=== PATIENT | female | born 1960 | race Caucasian/White ===

== ENCOUNTER 2020-07-20 11:54 | Inpatient (IN) | payer MEDICAID ==
[~2020-07-20] VITALS: Ht 160 cm; Wt 52.7 kg
[2020-07-20] MEDS ORDERED: PROBIOTIC (12:04)
[2020-07-20] MEDS ORDERED: LISINOPRIL5 MG PO (12:04)
[2020-07-20 12:39] LABS: HEMOGLOBIN 10.7 g/dL (12-16); MCH 24.8 pg (26.0-34.0); MCHC 33.4 g/dL (31.0-37.0); MCV 74.1 fL (80.0-100.0); MEAN PLATELET VOLUME 10.2 fL (7.4-10.4); PLATELET COUNT 265 10x3/uL (130-400); RBC 4.32 10x6/uL (4.00-5.40); RDW 16.7 % (11.5-14.5); WBC 12.1 10x3/uL (4.8-10.8)
[2020-07-20 12:56] LABS: ALBUMIN 3.2 g/dL (3.4-5.0); ALKALINE PHOSPHATASE 79 U/L (30-120); ALT (SGPT) 42 U/L (10-68); AMYLASE - SERUM 58 U/L (25-115); BILIRUBIN - TOTAL 2.29 mg/dL (0.2-1.3); CALCIUM 8.3 mg/dL (8.5-10.1); CARBON DIOXIDE 21.2 mmol/L (21.0-32.0); CREATININE - SERUM 1.5 mg/dL (0.6-1.3); GLUCOSE 129 mg/dL (74-106); LIPASE 342 U/L (73-393); POTASSIUM - SERUM 3.5 mmol/L (3.5-5.1); PROTEIN - SERUM 7.4 g/dL (6.4-8.2); UREA NITROGEN 12 mg/dL (7-18); eGFR NON AFRICAN AMERICAN 38 mL/min (90-120)
[2020-07-20 13:02] LABS: EOSINOPHILS 1 % (0-7); LYMPHOCYTES 27 % (15-50); MONOCYTES 2 % (2-11); NEUTROPHILS 70 % (40-80); PLATELET ESTIMATE NORMAL
[2020-07-20 13:03] LABS: TEAR DROP CELLS OCC
[2020-07-20 13:07] LABS: CALC OSMOLALITY 232 mosm/kg (275-300); TROPONIN-I < 0.017 ng/mL (0.000-0.060)
[2020-07-20 13:16] LABS: CHLORIDE - SERUM 82 mmol/L (98-107); SODIUM 114 mmol/L (136-145)
--- NOTE | 2020-07-20 14:09 | NUR ---
PT UP TO BATHROOM ATTEMPTING TO GIVE URINE SAMPLE
[2020-07-20 14:30] VITALS: BP 143/82
[2020-07-20 16:03] LABS: BILIRUBIN NEGATIVE (NEGATIVE); KETONE NEGATIVE (NEGATIVE); NITRITE NEGATIVE (NEGATIVE); UROBILINOGEN NORMAL (NORMAL)
[2020-07-20 16:35] VITALS: BP 142/84
[2020-07-20 17:48] VITALS: BP 112/67
--- NOTE | 2020-07-20 19:30 | NUR ---
PT ARRIVED TO FLOOR AOX4, AT BEDSIDE. AMBULATING TO BATHROOM AND BACK WITHOUT DIFFICULTY. ABD VERY DISTENDED, TENDER TO TOUCH. REPORT NO N/V SINCE STOPPING LEVAQUIN AND FLAGYL BUT STILL HAVING DIARRHEA. DR WELLS AT BEDSIDE SPEAKING WITH PT AT THIS TIME. CL IN REACH, WILL CTM
[2020-07-20] MEDS ORDERED: CLARITIN 10 MG10 MG PO (19:31)
[2020-07-20 20:00] VITALS: BP 120/74
--- NOTE | 2020-07-20 20:30 | NUR ---
DR WELLS ORDERED REPEAT CMP AND TO CALL RESULTS TO HER. ORDERS ALSO FOR NEPHROLOGY AND GASTROENTEROLOGY CONSULT. STATES TO CALL NEPHRO IN AM AND IS AWARE GI IS OUT UNTIL 07/24/20
[2020-07-20 20:57] LABS: ALBUMIN 2.7 g/dL (3.4-5.0); ANION GAP 12.9 mmol/L (8-16); BILIRUBIN - TOTAL 1.91 mg/dL (0.2-1.3); CALCIUM 7.5 mg/dL (8.5-10.1); CARBON DIOXIDE 21.3 mmol/L (21.0-32.0); CREATININE - SERUM 1.3 mg/dL (0.6-1.3); POTASSIUM - SERUM 3.2 mmol/L (3.5-5.1); PROTEIN - SERUM 6.5 g/dL (6.4-8.2)
--- NOTE | 2020-07-20 21:20 | NUR ---
CALLED RESULTS OF CMP TO DR WELLS. ORDER RECIEVED FOR NS W/ 20k @ 75. STARTED ORDERED. COLLECTED COVID SWAB. PLACED URINE HAT IN TOILET, INFORMED PT WE NEEDED TO A URINE SAMPLE AND TO CALL WHEN SHE GOES, VERBALIZED UNDERSTANDING BUT STATES SHE JUST WENT AND IT MIGHT BE A WHILE. DENIES OTHER NEEDS AT THIS TIME. CL IN REACH, WILL CTM
[2020-07-20 23:14] VITALS: Ht 160 cm; Wt 52.7 kg
[2020-07-21] VITALS (14 sets, daily range): BP systolic 93–123; BP diastolic 49–70
[2020-07-21 04:51] LABS: BASOPHILS 0.6 % (0-2); EOSINOPHILS 1.2 % (0-7); HEMATOCRIT 28.4 % (36.0-48.0); HEMOGLOBIN 9.5 g/dL (12-16); IMMATURE GRANULOCYTES 0.3 % (0-5); LYMPHOCYTES 19.5 % (15-50); MCH 24.9 pg (26.0-34.0); MCHC 33.5 g/dL (31.0-37.0); MCV 74.3 fL (80.0-100.0); MONOCYTES 20.1 % (2-11); NEUTROPHILS 58.3 % (40-80); PLATELET COUNT 265 10x3/uL (130-400); RBC 3.82 10x6/uL (4.00-5.40); RDW 16.9 % (11.5-14.5); WBC 14.7 10x3/uL (4.8-10.8)
[2020-07-21 05:07] LABS: APTT 44.5 SECONDS (22.8-39.4); INR 1.65 (0.85-1.17); PROTIME 19.3 SECONDS (11.6-15.0)
[2020-07-21 05:40] LABS: ALBUMIN 2.7 g/dL (3.4-5.0); BILIRUBIN - TOTAL 1.85 mg/dL (0.2-1.3); CALCIUM 7.1 mg/dL (8.5-10.1); CARBON DIOXIDE 20.8 mmol/L (21.0-32.0); CREATININE - SERUM 1.5 mg/dL (0.6-1.3); MAGNESIUM - SERUM 1.7 mg/dL (1.8-2.4); POTASSIUM - SERUM 3.3 mmol/L (3.5-5.1); PROTEIN - SERUM 6.5 g/dL (6.4-8.2); THYROID STIMULATING HORMONE 4.7 uIU/mL (0.36-3.74)
[2020-07-21 05:41] LABS: ANION GAP 11.5 mmol/L (8-16)
--- NOTE | 2020-07-21 07:15 | NUR ---
RECEIVED BEDSIDE REPORT. PT LAYING IN BED, A&O X4. DENIES PAIN. PIV IN RIGHT WRIST, PATENT AND INFUSING, NO REDNESS OR SWELLING. DENIES N/V SINCE LAST NIGHT. PT C/O THAT BUSINESS MANAGEMENT SPECIALIST STATED SHE COULD HAVE REG DIET, CALLED AND CONFIRMED, CHANGED DIET TO REGULAR. PT ABLE TO AMBULATE WITHOUT ASSIST. EDUCATED PT ON NEED FOR URINE SAMPLE, CL AND NEEDS, VERBALIZED UNDERSTANDING. BED LOW, RAILS X2. CL IN REACH, WILL CONTINUE TO MONITOR.
[2020-07-21 10:19] LABS: ANION GAP 12.5 mmol/L (8-16); CALCIUM 7.3 mg/dL (8.5-10.1); CARBON DIOXIDE 20.2 mmol/L (21.0-32.0); CREATININE - SERUM 1.3 mg/dL (0.6-1.3); POTASSIUM - SERUM 3.7 mmol/L (3.5-5.1)
--- NOTE | 2020-07-21 20:00 | NUR ---
PATIENT RESTING IN BED READING A BOOK. NO S/S OF ACUTE DISTRESS. NO C/O AT THIS TIME. PATIENT VITALS ARE STABLE AND INCISION ON RIGHT LOWER QUADRANT IS APPROXIMATE WITH NO BLEEDING. PATIENT ARRIVED BACK AT SHIFT CHANGED WHERE SHE HAD 4200ML TAKEN OFF WITH A PARACENTISIS. PATIENT HAS A RIGHT WRIST, NORMAL SALINE WITH 20 KCL @ 125 ML/HR. IV IS PATENT WITHOUT REDNESS, SWELLING, OR TENDERNESS. PATIENT IS UP ADLIB TO THE BATHROOM. CALL LIGHT WITHIN REACH. WILL CONTINUE TO MONITOR.
[2020-07-21 20:03] LABS: PROTEIN - BODY FLUID 1.7 G/DL
[2020-07-21 20:22] LABS: MACROPHAGES BF 55 %; MESOTHELIALS BF 13 %; NEUT - BF 19 %
[2020-07-22] VITALS (7 sets, daily range): BP systolic 95–117; BP diastolic 49–69
--- NOTE | 2020-07-22 02:25 | NUR ---
I have reviewed this patient and I concur with the Shift Assessment completed by the Licensed Practical Nurse today this shift.
[2020-07-22 06:31] LABS: BASOPHILS 1.1 % (0-2); EOSINOPHILS 1.1 % (0-7); HEMATOCRIT 25.2 % (36.0-48.0); HEMOGLOBIN 8.2 g/dL (12-16); IMMATURE GRANULOCYTES 0.3 % (0-5); LYMPHOCYTES 18.3 % (15-50); MCH 24.6 pg (26.0-34.0); MCHC 32.5 g/dL (31.0-37.0); MCV 75.7 fL (80.0-100.0); MEAN PLATELET VOLUME 10.2 fL (7.4-10.4); MONOCYTES 18.5 % (2-11); NEUTROPHILS 60.7 % (40-80); PLATELET COUNT 219 10x3/uL (130-400); RBC 3.33 10x6/uL (4.00-5.40)
[2020-07-22 06:41] LABS: WBC 10.8 10x3/uL (4.8-10.8)
[2020-07-22 07:05] LABS: ALBUMIN 2.4 g/dL (3.4-5.0); ANION GAP 13.6 mmol/L (8-16); BILIRUBIN - DIRECT 0.73 mg/dL (0.00-0.30); BILIRUBIN - INDIRECT 0.53 mg/dL (0.00-1.00); BILIRUBIN - TOTAL 1.26 mg/dL (0.2-1.3); CALCIUM 7.1 mg/dL (8.5-10.1); CARBON DIOXIDE 17.4 mmol/L (21.0-32.0); CREATININE - SERUM 1.1 mg/dL (0.6-1.3); PROTEIN - SERUM 5.3 g/dL (6.4-8.2); T4 THYROXIN - FREE 1.39 ng/dL (0.76-1.46); THYROID STIMULATING HORMONE 2.77 uIU/mL (0.36-3.74)
--- NOTE | 2020-07-22 07:47 | NUR ---
ALERT AND ORIENTED. LUNGS CLEAR BILATERALLY. HEART SOUNDS S1 AND S2 HEARD IN ALL MCGOV[place]. BOWEL SOUNDS ACTIVE X 4. IV TO RIGHT WRIST PATENT WITHOUT REDNESS. DIET RESTARTED PER GUILLE MILLER. PATIENT DENIES FURTHER NEEDS. BED LOW. CALL BRANDON AND PERSONAL ITEMS IN REACH. WILL CONTINUE TO MONITOR.
--- NOTE | 2020-07-22 12:23 | NUR ---
RESTING IN BED. DENIES NEEDS. WILL CONTINUE TO MONITOR.
--- NOTE | 2020-07-22 16:07 | NUR ---
RESTING IN BED. DENIES NEEDS. WILL CONTINUE TO MONITOR.
--- NOTE | 2020-07-22 19:00 | NUR ---
BEDSIDE REPORT RECEIVED AND CARE OF PT ASSUMED. PT LYING IN SUPINE POSITION WITH EYES CLOSED AND EASY RESPIRATIONS. IV TO RIGHT WRIST PATENT WITH NS W/ 20 KCL INFUSING AT 50 ML/HR. WILL MONITOR FOR NEEDS.
--- NOTE | 2020-07-22 21:04 | NUR ---
NO HS MEDS SCHEDULED. NO NEEDS VOICED BY PATIENT.
[2020-07-23] VITALS: BP 97/65
[2020-07-23 04:00] VITALS: BP 119/69
[2020-07-23 06:26] LABS: EOSINOPHILS 1.3 % (0-7); HEMATOCRIT 27.5 % (36.0-48.0); HEMOGLOBIN 8.6 g/dL (12-16); IMMATURE GRANULOCYTES 0.4 % (0-5); MCH 23.8 pg (26.0-34.0); MCHC 31.3 g/dL (31.0-37.0); MCV 76.2 fL (80.0-100.0); MEAN PLATELET VOLUME 9.9 fL (7.4-10.4); MONOCYTES 17.1 % (2-11); NEUTROPHILS 59.2 % (40-80); PLATELET COUNT 245 10x3/uL (130-400); RBC 3.61 10x6/uL (4.00-5.40); RDW 17.1 % (11.5-14.5); WBC 12.6 10x3/uL (4.8-10.8)
[2020-07-23 06:55] LABS: ALBUMIN 2.6 g/dL (3.4-5.0); ANION GAP 15.5 mmol/L (8-16); BILIRUBIN - TOTAL 1.34 mg/dL (0.2-1.3); CALCIUM 7.4 mg/dL (8.5-10.1); CARBON DIOXIDE 16.7 mmol/L (21.0-32.0); POTASSIUM - SERUM 4.2 mmol/L (3.5-5.1)
--- NOTE | 2020-07-23 07:11 | NUR ---
ALERT AND ORIENTED. LUNGS CLEAR BILATERALLY. HEART SOUNDS S1 AND S2 HEARD IN ALL MCGOVERN. BOWEL SOUNDS ACTIVE X 4. IV TO RIGHT WRIST PATENT WITHOUT REDNESS. DENIES NEEDS. BED LOW. CALL BRANDON AND PERSONAL ITEMS IN REACH. WILL CONTINUE TO MONITOR.
[2020-07-23 08:46] VITALS: BP 113/74
[2020-07-23] MEDS ORDERED: SODIUM BICARBO325 MG PO (09:20)
--- NOTE | 2020-07-23 09:56 | NUR ---
DISCHARGE EDUCATION PROVIDED BOTH WRITTEN AND VERBAL. VERBALIZED UNDERSTANDING DENIES FURTHER QUESTIONS. RX FOR SODIUM BICARD PROVIDED. EDUCATION PROVIDED TO PATIENT THAT CAN TAKE HALF TEASPOON OF BAKING SODA TWICE DAILY INSTEAD OF SODIUM BICARB IF PATIENT CANNOT AFFORD SODIUM BICARB D/T NO INSURACE PER MD. DENIES FURTHER NEEDS. IV REMOVED FROM RIGHT WRIST WITH TIP INTACT. WAITING RIDE.
--- NOTE | 2020-07-23 10:20 | NUR ---
PATIENT DC HOME WITH WITH ALL BELONGINGS.
--- NOTE | 2020-07-23 13:03 | MORECARE ---
CASE MANAGEMENT DISCHARGE SUMMARY PATIENT: YUSEF BARILLAS UNIT: [id number] ADM DATE: 07/20/20 AGE: 59 : 62 SEX: F ROOM/BED: D.2225 AUTHOR: ANGELINA CHRISTINE PHYSICIAN: REFERRING PHYSICIAN: MATILDE ARNETT MD DATE OF SERVICE: 07/23/20 Discharge Plan Patient Name: YUSEF BARILLAS Facility: [facility]:[place] : 1960 Planned Disposition: Home Anticipated Discharge Date: 07/23/20 Discharge Date: 07/23/2020 Expected LOS: 3 Initial Reviewer: [email or web address] Initial Review Date: 07/23/2020 Generated: 07/23/20 2:02 pm Patient Name: YUSEF BARILLAS Page 50118 at 1303 All edits/amendments must be made on the electronic document DICTATION DATE: 07/23/20 1302 SPECIALTY MANUFACTURING SUPERVISOR: MIHAELA 07/23/20 1302 RPT#: [id number] DC DATE:07/23/20 STATUS: DIS IN [facility] [address] [place] [address] END OF REPORT
--- NOTE | 2020-07-23 13:10 | MORECARE ---
CASE MANAGEMENT DISCHARGE SUMMARY PATIENT: YUSEF BARILLAS UNIT: [id number] ADM DATE: 07/20/20 AGE: 59 : 62 SEX: F ROOM/BED: D.2225 AUTHOR: ANGELINA CHRISTINE PHYSICIAN: REFERRING PHYSICIAN: MATILDE ARNETT MD DATE OF SERVICE: 07/23/20 Discharge Plan Patient Name: YUSEF BARILLAS Facility: [facility]:[place] : 1960 Planned Disposition: Home Anticipated Discharge Date: 07/23/20 Discharge Date: 07/23/2020 Expected LOS: 3 Initial Reviewer: [email or web address] Initial Review Date: 07/23/2020 Generated: 07/23/20 2:09 pm Last DP export: 07/23/20 12:03 p Patient Name: YUSEF BARILLAS Page [id number] at 1310 All edits/amendments must be made on the electronic document DICTATION DATE: 07/23/20 1309 HALF SECTION IRONER: MIHAELA 07/23/20 1309 RPT#: [id number] DC DATE:07/23/20 STATUS: DIS IN [facility] [address] [place] [address] END OF REPORT
--- NOTE | 2020-07-23 13:16 | MORECARE ---
CASE MANAGEMENT DISCHARGE SUMMARY PATIENT: YUSEF WARD UNIT: [id number] ADM DATE: 07/20/20 AGE: 59 : 62 SEX: F ROOM/BED: D.2225 AUTHOR: NANCI,DOC PHYSICIAN: REFERRING PHYSICIAN: MATILDE ARNETT MD DATE OF SERVICE: 07/23/20 Discharge Plan Patient Name: YUSEF WARD Facility: [facility]:[place] : 1960 Planned Disposition: Home Anticipated Discharge Date: 07/23/20 Discharge Date: 07/23/2020 Expected LOS: 3 Initial Reviewer: [email or web address] Initial Review Date: 07/23/2020 Generated: 07/23/20 2:16 pm Comments DCP- Discharge Planning Updated by ESTEFANIA: Roe Lee on 07/23/20 12:[address] Patient Name: YUSEF WARD Admission Status: ER Accout number: [id number] Admission Date: 07-20-2020 : 1960 Admission Diagnosis:ALCOHOLIC CIRRHOSIS OF LIVER WITH ASCITES Attending: MATILDE ARNETT Current LOS: 3 Anticipated DC Date: 07-23-2020 Planned Disposition: Home Primary Insurance: MEDICAID [place] Discharge Planning Comments: CM met with patient to complete initial dc planning assessment. CM educated patient on the CM role and verbal consent given by patient to complete assessment. CM verified patient's address, phone number, and emergency contact phone numbers. Patient lives at Home with , Kian Ward [phone]. At discharge patient plans to return home and feels this is a safe discharge. Patient is independent and has ADL needs. CM discussed availability of home health, rehab services, and medical equipment. Patient declined HH, SNF, IPR, and DME at this time. No other discharge needs requested. Transportation provider at discharge will be home with her spouse, Kian Ward. CM will continue to follow and will assist as needed with dc plans/needs. District Sales Leader: Roe Lee DCPIA - Discharge Planning Initial Assessment Updated by [email or web address]: Roe Lee on 07/23/20 1:12 pm * Is the patient Alert and Oriented? Yes * How many steps to enter\exit or inside your home? 5/0 * PCP Dr. Shoemaker * Pharmacy [facility] * Preadmission Environment Home with Family * ADLs Independent * Equipment None * Other Equipment NOne * List name and contact numbers for known caregivers / representatives who currently or will assist patient after discharge: Kian Ward - [phone] * Verbal permission to speak to the caregivers and representatives has been obtained from the patient. Yes * Community resources currently utilized None * Additional services required to return to the preadmission environment? No * Can the patient safely return to the preadmission environment? Yes * Has this patient been hospitalized within the prior 30 days at any hospital? No Last DP export: 07/23/20 12:10 p Patient Name: YUSEF WARD Page [id number] at 1316 All edits/amendments must be made on the electronic document DICTATION DATE: 07/23/20 1316 WHEEL ADJUSTER: MIHAELA 07/23/20 1316 RPT#: [id number] DC DATE:07/23/20 STATUS: DIS IN [facility] [address] [place] [address] END OF REPORT
--- NOTE | 2020-07-24 10:09 | MORECARE ---
CASE MANAGEMENT DISCHARGE SUMMARY PATIENT: YUSEF WARD UNIT: [id number] ADM DATE: 07/20/20 AGE: 59 : 62 SEX: F ROOM/BED: D.2225 AUTHOR: NANCIDOC PHYSICIAN: REFERRING PHYSICIAN: MATILDE ARNETT MD DATE OF SERVICE: 07/24/20 Discharge Plan Patient Name: YUSEF WARD Facility: [facility]:[place] : 1960 Planned Disposition: Home Anticipated Discharge Date: 07/23/20 Discharge Date: 07/23/2020 Expected LOS: 3 Initial Reviewer: ESTEFANIA Initial Review Date: 07/23/2020 Generated: 07/24/20 11:09 am Comments DCP- Discharge Planning Updated by ESTEFANIA: Roe Lee on 07/23/20 12:[address] Patient Name: YUSEF WARD Admission Status: ER Accout number: [id number] Admission Date: 07-20-2020 : 1960 Admission Diagnosis:ALCOHOLIC CIRRHOSIS OF LIVER WITH ASCITES Attending: MATILDE ARNETT Current LOS: 3 Anticipated DC Date: 07-23-2020 Planned Disposition: Home Primary Insurance: MED[place]ID [place] Discharge Planning Comments: CM met with patient to complete initial dc planning assessment. CM educated patient on the CM role and verbal consent given by patient to complete assessment. CM verified patient's address, phone number, and emergency contact phone numbers. Patient lives at Home with , Kian Ward [phone]. At discharge patient plans to return home and feels this is a safe discharge. Patient is independent and has ADL needs. CM discussed availability of home health, rehab services, and medical equipment. Patient declined HH, SNF, IPR, and DME at this time. No other discharge needs requested. Transportation provider at discharge will be home with her spouse, Kian Ward. CM will continue to follow and will assist as needed with dc plans/needs. Dietetics Teacher: Roe Lee DCPIA - Discharge Planning Initial Assessment Updated by [email or web address]: Roe Lee on 07/23/20 1:12 pm * Is the patient Alert and Oriented? Yes * How many steps to enter\exit or inside your home? 5/0 * PCP Dr. Shoemaker * Pharmacy [facility] * Preadmission Environment Home with Family * ADLs Independent * Equipment None * Other Equipment NOne * List name and contact numbers for known caregivers / representatives who currently or will assist patient after discharge: Kian Ward - [phone] * Verbal permission to speak to the caregivers and representatives has been obtained from the patient. Yes * Community resources currently utilized None * Additional services required to return to the preadmission environment? No * Can the patient safely return to the preadmission environment? Yes * Has this patient been hospitalized within the prior 30 days at any hospital? No Last DP export: 07/23/20 12:16 p Patient Name: YUSEF WARD Page 55113 at 1009 All edits/amendments must be made on the electronic document DICTATION DATE: 07/24/20 1009 MULTISKILL OPERATOR: MIHAELA 07/24/20 1009 RPT#: [id number] DC DATE:07/23/20 STATUS: DIS IN [facility] [address] [place] [address] END OF REPORT
== END 2020-07-23 10:21 | disposition home or self-care (01) | DRG 433 ==
LOC: D.ER 11:54 → D.MS 16:55
PROVIDERS: Emergency Medicine; Family Medicine; General Practice; Internal Medicine Nephrology; ADMIT Legal Medicine; ATTEND Legal Medicine
PROC: 0W9G3ZZ Drainage of Peritoneal Cavity, Percutaneous Approach (ICD-10-PCS; principal; 2020-07-21 18:35)
DX: K70.31 Alcoholic cirrhosis of liver with ascites (principal); N17.9 Acute kidney failure, unspecified; E87.1 Hypo-osmolality and hyponatremia; E87.2 Acidosis; K56.7 Ileus, unspecified; K56.609 Unspecified intestinal obstruction, unspecified as to partial versus complete obstruction; D64.9 Anemia, unspecified; R53.1 Weakness; I10 Essential (primary) hypertension; B18.2 Chronic viral hepatitis C

== ENCOUNTER 2020-08-01 10:40 | Day surgery (SDC) | payer MEDICAID ==
[~2020-08-01] VITALS: Ht 160 cm; Wt 58.2 kg
[~2020-08-01 10:40] MED LIST: CLARITIN 10 MG10 MG PO; LISINOPRIL5 MG PO; PROBIOTIC; SODIUM BICARBO325 MG PO
[2020-08-01 11:16] LABS: BASOPHILS 0.3 % (0-2); EOSINOPHILS 1.5 % (0-7); HEMATOCRIT 29.2 % (36.0-48.0); HEMOGLOBIN 9.6 g/dL (12-16); IMMATURE GRANULOCYTES 0.2 % (0-5); LYMPHOCYTES 17.8 % (15-50); MCH 24.6 pg (26.0-34.0); MCHC 32.9 g/dL (31.0-37.0); MCV 74.9 fL (80.0-100.0); MEAN PLATELET VOLUME 9.8 fL (7.4-10.4); MONOCYTES 14.2 % (2-11); PLATELET COUNT 214 10x3/uL (130-400); RDW 18.9 % (11.5-14.5); WBC 12.7 10x3/uL (4.8-10.8)
[2020-08-01 11:34] LABS: ALBUMIN 2.8 g/dL (3.4-5.0); ANION GAP 12.7 mmol/L (8-16); BILIRUBIN - TOTAL 2.22 mg/dL (0.2-1.3); CALCIUM 7.7 mg/dL (8.5-10.1); CARBON DIOXIDE 25.7 mmol/L (21.0-32.0); POTASSIUM - SERUM 3.4 mmol/L (3.5-5.1); PROTEIN - SERUM 6.8 g/dL (6.4-8.2)
[2020-08-01 11:55] VITALS: BP 115/67; BMI 22.3
[2020-08-01 11:56] LABS: INR 1.73 (0.85-1.17)
[2020-08-01] MEDS ORDERED: LASIX20 MG PO (11:59)
[2020-08-01] MEDS ORDERED: XIFAXAN550 MG PO (12:00)
[2020-08-01] MEDS ORDERED: POTASSIUM CHLO10 ME1 PO (12:01)
--- NOTE | 2020-08-01 16:00 | NUR ---
PROCEDURE CANCELLED DUE TO ABNORMAL LAB VALUES PER BEVERLEY HAUSER RN. DR ETIENNE WISHES TO ADMIT PATIENT AND IS TO SEND ORDERS TO TROPHY ASSEMBLER. PATIENT LYING IN BED, C/O BEING COLD. EXTRA WARMED BLANKET PROVIDED. PATIENT WANTS SPOUSE TO GO GET SOMETHING TO EAT FROM A RESTAURANT, STATES "I'VE HAD ENOUGH HOSPITAL FOOD, I'M NOT EATING IT TODAY."
[2020-08-01 18:40] VITALS: Ht 160 cm; Wt 58.2 kg
--- NOTE | 2020-08-01 18:52 | NUR ---
PATIENT HAS REQUESTED PAIN MEDICATION FOR BACK PAIN, NO PRN MEDICATIONS ON Jan PAGE SHELL GRADER FOR PATIENT
--- NOTE | 2020-08-01 19:11 | NUR ---
RECEIVED CALL BACK FROM DR ETIENNE, VERBAL ORDERS GIVEN FOR PRN MEDCIATIONS. NO OTHER NEEDS AT THIS TIME
--- NOTE | 2020-08-01 19:32 | NUR ---
AFTER OPENING PT PAIN MEDICATION PT STATED CAN NOT TAKE. PAGED DR ETIENNE AGAIN
[2020-08-01 20:00] VITALS: BP 110/72
--- NOTE | 2020-08-02 03:22 | NUR ---
I have reviewed this patient and I concur with the Shift Assessment completed by the Licensed Practical Nurse today this shift.
[2020-08-02 04:00] VITALS: BP 105/65
[2020-08-02 06:51] LABS: BASOPHILS 0.4 % (0-2); EOSINOPHILS 3.6 % (0-7); HEMATOCRIT 28.4 % (36.0-48.0); HEMOGLOBIN 9.2 g/dL (12-16); IMMATURE GRANULOCYTES 0.3 % (0-5); LYMPHOCYTES 27.6 % (15-50); MCH 24.4 pg (26.0-34.0); MCHC 32.4 g/dL (31.0-37.0); MCV 75.3 fL (80.0-100.0); MEAN PLATELET VOLUME 9.8 fL (7.4-10.4); MONOCYTES 15.6 % (2-11); NEUTROPHILS 52.5 % (40-80); PLATELET COUNT 206 10x3/uL (130-400); RBC 3.77 10x6/uL (4.00-5.40); RDW 19.1 % (11.5-14.5); WBC 11.3 10x3/uL (4.8-10.8)
--- NOTE | 2020-08-02 07:44 | NUR ---
AWAKE AND WITHOUT DISTRESS.FAMILY AT BEDSIDE. WANTS BREAKFAST AND TYLENOL
[2020-08-02 07:52] LABS: ALBUMIN 2.5 g/dL (3.4-5.0); ANION GAP 9.9 mmol/L (8-16); BILIRUBIN - TOTAL 1.74 mg/dL (0.2-1.3); CALCIUM 7.7 mg/dL (8.5-10.1); CARBON DIOXIDE 27.9 mmol/L (21.0-32.0); CREATININE - SERUM 0.9 mg/dL (0.6-1.3); INR 1.65 (0.85-1.17); POTASSIUM - SERUM 3.8 mmol/L (3.5-5.1); PROTEIN - SERUM 6.1 g/dL (6.4-8.2); PROTIME 19.3 SECONDS (11.6-15.0)
[2020-08-02 09:10] VITALS: BP 122/72
[2020-08-02 12:13] VITALS: BP 128/74
[2020-08-02 13:16] LABS: EOS BF 2 %; MACROPHAGES BF 52 %; NEUT - BF 7 %
== END 2020-08-02 13:42 | disposition home or self-care (01) ==
LOC: D.CT 10:40 → D.MS 17:03 → D.CT 08-02 13:42
PROVIDERS: Radiology Diagnostic Radiology; Radiology Vascular & Interventional Radiology; ATTEND Family Medicine
DX: E87.1 Hypo-osmolality and hyponatremia (principal); K70.31 Alcoholic cirrhosis of liver with ascites; I10 Essential (primary) hypertension; Z68.22 Body mass index [BMI] 22.0-22.9, adult; K70.11 Alcoholic hepatitis with ascites; B19.20 Unspecified viral hepatitis C without hepatic coma